=== PATIENT | male | born 1985 | race Caucasian/White ===

== ENCOUNTER 2017-08-21 02:39 | Emergency (ER) | payer SELFPAY ==
--- NOTE | 2017-08-21 03:15 | NUR ---
PT DECIDED NOT TO BE SEEN.LWBT
== END 2017-08-21 03:15 | disposition left against medical advice (07) ==
LOC: ER 02:49
DX: Z53.21 Procedure and treatment not carried out due to patient leaving prior to being seen by health care provider (principal)